=== PATIENT | female | born 1985 | race Caucasian/White ===

== ENCOUNTER 2022-08-22 15:28 | Outpatient (REF) | payer MEDICAID, SELFPAY ==
[2022-08-22 21:08] LABS: Bilirubin Negative (Negative); Blood Trace-intact (Negative); Clarity Clear (Clear); Glucose Negative (Negative); Ketones Negative (Negative); Leukocyte Esterase Trace (Negative); Nitrite Negative (Negative); Urobilinogen 0.2 EU/dL (Up TO 0.2); pH 6.5 (5-8)
[2022-08-22 21:17] LABS: Bacteria Rare HPF (Negative); C & S Indicated? Yes; Crystals Negative HPF (Negative); Epithelial Cells Moderate HPF (Negative); Mucus Negative (Negative); RBC 0-2 HPF (0-2)
[2022-08-22 21:39] LABS: Abs Immature Grans 0.04 10^3/uL (0.0-0.06); Absolute Basophil Count 0.04 10^3/uL (0.0-0.2); Absolute Eosinophil Count 0.03 10^3/uL (0.0-0.7); Absolute Lymphocyte Count 2.12 10^3/uL (1.2-3.4); Absolute Monocyte Count 0.57 10^3/uL (0.1-0.8); Basophils % 0.4; Eosinophils % 0.3; HCT 46.5 % (36.0-46.0); HGB 15.7 g/dL (11.2-15.7); Immature Grans % 0.4; Lymphocytes % 20.6; MCH 30.8 pg (27.0-33.0); MCHC 33.8 % (32.0-36.0); MCV 91 fL (80-95); Monocytes % 5.5; Neutrophils % 72.8; Platelet Count 333 10^3/uL (130-400); RDW 13.1 % (11.7-14.6); RDW-SD 43.9 fL
[2022-08-22 22:01] LABS: ALT 48 U/L (14-59); AST 21 U/L (15-37); Albumin 4.7 g/dL (3.4-5.0); Alkaline Phosphatase 79 U/L (46-116); Anion Gap 10.3 mmol/L (3-11); BUN 13 mg/dL (7-18); Bilirubin, Total 0.5 mg/dL (0.2-1.0); CO2 25.7 mmol/L (21.0-32.0); CREATININE 0.8 mg/dL (0.55-1.02); Calcium 9.6 mg/dL (8.5-10.1); Chloride 102 mmol/L (98-107); Estimated GFR 97.26 (mL/min/1.73m2); Glucose 86 mg/dL (74-106); Sodium 138 mmol/L (136-145)
== END 2022-08-22 15:29 | disposition home or self-care (01) ==
LOC: LBN 15:28
PROVIDERS: Visit Provider Physician Assistant
DX: R10.31 Right lower quadrant pain (principal); R39.89 Other symptoms and signs involving the genitourinary system; R82.998 Other abnormal findings in urine
CPT/HCPCS: 80053; 81003; 81015; 85025; 87086

== ENCOUNTER → 2022-08-23 02:22 | Outpatient (CLI) | payer MEDICAID, SELFPAY ==
--- NOTE | 2022-08-23 06:30 | DI.US_ITS ---
Exam(s) US ABDOMEN EXAM: US ABDOMEN CLINICAL HISTORY: right flank pain with mild radiation to RUQ,unspec abd pain, r10.9 TECHNIQUE: Ultrasound abdomen performed using standard protocol. COMPARISON: US PELVIS TRANSVAG from 03/01/2016 FINDINGS: ABDOMINAL AORTA AND IVC: Visualized portions normal caliber. PANCREAS: Normal where visualized. LIVER: Normal. Hepatopedal flow in the Portal Vein. GALLBLADDER:No evidence of cholelithiasis. No evidence of wall thickening. No pericholecystic fluid i dentified. BILIARY SYSTEM: Common bile duct measures < 7 mm. No intrahepatic biliary ductal dilation. ANN'S SIGN: Negative. KIDNEYS: Kidneys are symmetric in size. No evidence of renal calculi. No evidence of hydronephrosis. No renal mass or cyst identified. SPLEEN: Not enlarged. ASCITES: None seen. IMPRESSION: 1. No evidence of nephrolithiasis or hydronephrosis. 2. No evidence of cholelithiasis or sonographic evidence to suggest acute cholecystitis. DATA REPOSITORY:
== END ==
PROVIDERS: Visit Provider Physician Assistant
DX: R10.9 Unspecified abdominal pain (principal)
CPT/HCPCS: 76700

== ENCOUNTER 2022-11-30 10:01 | Outpatient (REF) | payer MEDICAID, SELFPAY | END 2022-11-30 10:02 | disposition home or self-care (01) | LOC: LBN 10:01 | PROVIDERS: PCP Nurse Practitioner Family; Visit Provider Nurse Practitioner Family | DX: N39.0 Urinary tract infection, site not specified (principal) | CPT/HCPCS: 87077; 87086; 87186 ==

== ENCOUNTER 2022-12-12 11:53 | Outpatient (REF) | payer MEDICAID, SELFPAY ==
[2022-12-12 11:35] LABS: Bilirubin Negative (Negative); Blood Small (Negative); Clarity Sl Cloudy (Clear); Glucose Negative (Negative); Ketones Negative (Negative); Leukocyte Esterase Small (Negative); Nitrite Positive (Negative); Urobilinogen 0.2 EU/dL (Up TO 0.2)
[2022-12-12 11:48] LABS: Bacteria Many HPF (Negative); C & S Indicated? Yes; Casts Negative LPF (Negative); Crystals Negative HPF (Negative); Epithelial Cells Few HPF (Negative); Mucus Negative (Negative)
--- OUTSIDE RECORDS SUMMARY | 2022-12-12 11:55 | XMS_ITS | Continuity of Care Document ---
:1985 Author Organization [facility] Address [address] [place] [address] Encounter NCTY_OR Date(s): 10/01/22 - 10/01/22 [facility] [address] [place] [address] Encounter Diagnosis UTI (urinary tract infection) (Discharge Diagnosis) - 10/01/22 Discharge Disposition: Home or Self Care Attending Physician: Ang Rosario MD Admitting Physician: Ang Rosario MD Allergies, Adverse Reactions, Alerts Substance Reaction Severity Status Sulfacetamide Sodium-Sulfur Moderate Acti ve Assessment and Plan Diagnostic Tests PendingUrine Culture 10/01/22 Medications cephalexin 500 mg oral tablet 500 mg = 1 tab, Oral, TID, X 5 days, # 15 tab, 0 Refill(s), 10/06/22 17:17:00 EST, Pharmacy: [facility], 160.02, cm, 10/01/22 16:48:00 EST, Height/Length Dosing, 68.04, kg, 10/01/22 16:48:00 EST, Weight Dosing Start Date: 10/01/22 Stop Date: 10/06/22 Status: Orderedphenazopyridine 97.2 mg oral tablet 97.2 mg = 1 tab, Oral, TID, PRN not specified, with food, # 10 cap, 0 Refill(s), Pharmacy: [facility], 160.02, cm, 10/01/22 16:48:00 EST, Height/Length Dosing, 68.04, kg, 10/01/22 16:48:00 EST, Weight Dosing Start Date: 10/01/22 Stop Date: 10/03/22 Status: Ordered Results Laboratory List Name Date Urinalysis with Micro if Indicated and Culture if Ivy cated 10/01/22 Urinalysis Microscopic 10/01/22 Most recent to oldest [Reference Range]: 1 UA Color Pale Yellow (10/01/22 5:02 PM) UA WBC [0-3] 25-50 *ABN* (10/01/22 5:02 PM) UA Urobilinogen Normal (10/01/22 5:02 PM) UA Bili [Negative] Negative (10/01/22 5:02 PM) UA Ketones 2+ *ABN* (10/01/22 5:02 PM) UA RBC [0-2] 3-5 (10/01/22 5:02 PM) UA Leuk Est 3+ *ABN* (10/01/22 5:02 PM) UA Nitrite Negative (10/01/22 5:02 PM) UA Glucose [Negative] Negative (10/01/22 5:02 PM) UA Bacteria Moderate /HPF *ABN* (10/01/22 5:02 PM) UA Protein Negative (10/01/22 5:02 PM) UA Blood 2+ *ABN* (10/01/22 5:02 PM) UA Mucous None Seen /HPF (10/01/22 5:02 PM) UA Spec Grav <=1.005 *NA* (10/01/22 5:02 PM) UA Squam Epithelial [None Seen] Rare (10/01/22 5:02 PM) UA pH 6.0 *NA* (10/01/22 5:02 PM) UA Appear Hazy *ABN* (10/01/22 5:02 PM) UA Culture Ind?. Indicated (10/01/22 5:02 PM) Vital Signs Most recent to oldest [Reference Range]: 1 Temperature Temporal Artery [36-38 Deg C] 37.5 Deg C (10/01/22 4:43 PM) Peripheral Pulse Rate [60-100 bpm] 124 bpm *HI* (10/01/22 4:43 PM) Respiratory Rate [12-24 br/min] 16 br/min (10/01/22 4:43 PM) Blood Pressure [90-140/60-90 mmHg] 129/70 mmHg (10/01/22 4:43 PM) Weight Dosing 68.04 kg (10/01/22 4:48 PM) Weight Estimated 68.04 kg (10/01/22 4:43 PM) Height/Length Dosing 160.020 cm (10/01/22 4:48 PM) Height/Length Estimated 160.020 cm (10/01/22 4:43 PM) Social History Social History Type Response Tobacco Current everyday tobacco use r Tobacco Use:. Less than a 1/2 ppd per day. Sex Hospital Discharge Instructions Patient Nffoikvkt90/19/2022 16:19:37Urinary Tract Infection, AdultUrinary Tract Infection, Adult A urinary tract infection (UTI) is an infection of any part of the urinary tract. The urinary tract includes the kidneys, ureters, bladder, and urethra. These organs make, store, and get rid of urine in the body. An upper UTI affects the ureters and kidneys. A lower UTI affects the bladder and urethra. What are the causes? Most urinary tract infections are caused by bacteria in your genital area around your urethra, whereurine leaves your body. These bacteria grow and cause inflammation of your urinary tract. What increases the risk? You are more likely to develop this condition if: ??? You have a urinary catheter that stays in place. ??? You are not able to control when you urinate or have a bowel movement (incontinence). ??? You are female and you: ??? Use a spermicide or diaphragm for control. ??? Have low estrogen levels. ??? Are . ??? You have certain genes that increase your risk. ??? You are sexually active. ??? You take antibiotic medicines. ??? You have a condition that causes your flow of urine to slow down, such as: ??? An enlarged prostate, if you are male. ??? Blockage in your urethra. ??? A kidney stone. ??? A nerve condition that affects your bladder control (neurogenic bladder). ??? Not getting enough to drink, or not urinating often. ??? You have certain medical conditions, such as: ??? Diabetes. ??? A weak disease-fighting system (immunesystem). ??? Sickle cell disease. ??? Gout. ??? Spinal cord injury. What are the signs or symptoms? Symptoms of this condition include: ??? Needing to urinate right away (urgency). ??? Frequent urination. This may include small amounts of urine each time you urinate. ??? Pain or burning with urination. ??? Blood in the urine. ??? Urine that smells bad or unusual. ??? Trouble urinating. ??? Cloudy urine. ??? Vaginal discharge, if you are female. ??? Pain in the abdomen or the lower back. You may also have: ??? Vomiting or a decreased appetite. ??? Confusion. ??? Irritability or tiredness. ??? A fever or chills. ??? Diarrhea. The first symptom in older adults may be confusion. In some cases, they may not have any symptoms until the infection has worsened. How is this diagnosed? This condition is diagnosed based on your medical history and a physical exam. You may also have other tests, including: ??? Urine tests. ??? Blood tests. ??? Tests for STIs (sexually transmitted infections). If you have had more than one UTI, a cystoscopy or imaging studies may be done to determine the cause of the infections. How is this treated? Treatment for this condition includes: ??? Antibiotic medicine. ??? Korn-jdk-nyinsdn medicines to treat discomfort. ??? Drinking enough water to stay hydrated. If you have frequent infections or have other conditions such as a kidney stone, you may need to seea health care provider who specializes in the urinary tract (urologist). In rare cases, urinary tract infections can cause sepsis. Sepsis is a life- threatening condition that occurs when the body responds to an infection. Sepsis is treated in the hospital with IV antibiotics, fluids, and other medicines. Follow these instructions at home: Medicines ??? Take gfvx-mzu-sygylxg and prescription medicines only as told by your health care provider. ??? If you were prescribed an antibiotic medicine, take it as told by your health care provider. Do not stop using the antibiotic even if you start to feel better. General instructions ??? Make sure you: ??? Empty your bladder often and completely. Do not hold urine for long periods of time. ??? Empty your bladder after sex. ??? Wipe from front to back after urinating or having a bowel movement if you are female. Use each tissue only one time when you wipe. ??? Drink enough fluid to keep your urine pale yellow. ??? Keep all follow-up visits. This is important. Contact a health care provider if: ??? Your symptoms do not get better after 1???2 days. ??? Your symptoms go away and then return. Get help right away if: ??? You have severe pain in your back or your lower abdomen. ??? You have a fever or chills. ??? You have nausea or vomiting. Summary ??? A urinary tract infection (UTI) is an infection of any part of the urinary tract, which includesthe kidneys, ureters, bladder, and urethra. ??? Most urinary tract infections are caused by bacteria in your genital area. ??? Treatment for this condition often includes antibiotic medicines. ??? If you were prescribed an antibiotic medicine, take it as told by your health care provider. Do not stop using the antibiotic even if you start to feel better. ??? Keep all follow-up visits. This is important. This information is not intended to replace advice given to you by your health care provider. Make sure you discuss any questions you have with your health care provider. Document Revised: 06/11/2021 Document Reviewed: 06/11/2021 [employer] Patient Education ?? 2021 [employer] Follow Up Care10/01/2022 16:43:02With:Follow up with primary care provider Address: [facility] Ang Rosario MD: PERFORM Event Display: ED Note Physician Authored Date: [id number] VIRAL LUNA :1985 Age:37 years Sex:Female Visit Date:10/01/2022 Basic Information Time Seen: Ang Rosario MD / 10/01/2022 16:45 Chief Complaint Pt states she may have a UTI. ??C/O burning upon urination for a few days History Of Present Illness: 37-year-old female presents because of a 2-day history of burning on urination and urine urgency??and frequency. ??No abdominal pain no CVA tenderness or fever or chills. ??She states that last time she had a UTI and had an ultrasound and a blood test and her kidneys were fine.?? No other complaints.?? She is allergic to sulfa, she does not remember the name of the antibiotic she was on last time.??No suspicion of exposure to sexually transmitted infection. Review of Systems: Constitutional:??no??fever,??no??chills,? Gastrointestinal:??No abdominal pain Genitourinary:??moderate??dysuria,??no??hematuria,??positive urgency Musculoskeletal:??No CVA tenderness Physical Exam Vitals & Measurements T:??37.5?C ??(Temporal Artery)?? HR:??124??(Peripheral)?? RR:??16?? BP:??129/70?? SpO2:??99%?? HT:??160.020??cm?? WT:??68.04??kg??(Estimated)?? Pain Score:??7?? O2 Therapy:??Room air?? General:??alert,??no acute distress. Skin:??warm,??dry. Head:??no??trauma,??normocephalic. ?? Eye:??normal??conjunctiva, sclera??clear. Cardiovascular:?? normal??peripheral perfusion. Respiratory: respirations??non-labored. ?? Gastrointestinal:??soft,??non distended,??no??tenderness,??no??guarding.?? No CVA tenderness ?? Neurological:??oriented??x 4,?speech??normal. Psychiatric:??cooperative, affect??appropriate for age,?? Medical Decision Making: ??Urine analysis??compatible with??UTI.?? No??suspicion of kidney stone clinically . ??Clinically does not appear to be vaginitis.?? She is given Pyridium and also put on cephalexin. ??Discharged in stable condition Procedure No Qualifying Data Assessment/Plan 1.??UTI (urinary tract infection)??N39.0 Orders: cephalexin 500 mg oral tablet, 500 mg = 1 tab, Oral, TID, X 5 days, # 15 tab, 0 Refill(s), 10/06/2217:17:00 EST, Pharmacy: [facility], 160.02, cm, 10/01/22 16:48:00 EST, Height/Length Dosing, 68.04, kg, 10/01/22 16:48:00 EST, Weight Dosing phenazopyridine 97.2 mg oral tablet, 97.2 mg = 1 tab, Oral, TID, PRN not specified, with food, # 10cap, 0 Refill(s), Pharmacy: [facility], 160.02, cm, 10/01/22 16:48:00 EST, Height/Length Dosing, 68.04, kg, 10/01/22 16:48:00 EST, Weight Dosing Discharge Patient, 10/01/22 17:17:00 EST, Home Independently, Constant Indicator Urine Culture, Urine, Stat collect, ST - Stat, 10/01/22 17:02:02 EST, Once, Nurse collect, Collected, 10/01/22 17:02:02 EST, Print Label, [id number] Patient Education Urinary Tract Infection, Adult Follow Up With When Contact Information Follow up with primary care provider Only if needed Additional Instructions: Medication Reconciliation New Prescription cephalexin (cephalexin 500 mg oral tablet)1 tab Oral (given by mouth) 3 times a day for 5 Days. Refills: 0. ?? phenazopyridine (phenazopyridine 97.2 mg oral tablet)1 tab Oral (given by mouth) 3 times a day as needed not specified for 2 Days. with food. Refills: 0. Problem List/Past Medical History Ongoing No qualifying data Historical No qualifying data Medication Administration Given THP cephalexin 250 mg Cap, 1 EA, Oral THP phenazopyridine 95 mg Tab, 1 EA, Oral Allergies Sulfacetamide Sodium-Sulfur Social History Electronic Cigarette/Vaping Electronic Cigarette Use: Never. Tobacco Current everyday tobacco user Tobacco Use:. Less than a 1/2 ppd per day. Lab Results UA Macroscopic?? LATEST RESULTS?? UA Color?? 10/01/22 17:02?? Pale Yellow?? UA Appear?? 10/01/22 17:02?? Hazy Abnormal?? UA Glucose?? 10/01/22 17:02?? Negative?? UA Bili?? 10/01/22 17:02?? Negative?? UA Ketones?? 10/01/22 17:02?? 2+ Abnormal?? UA Spec Grav?? 10/01/22 17:02?? <=1.005?? UA Blood?? 10/01/22 17:02?? 2+ Abnormal?? UA pH?? 10/01/22 17:02?? 6.0?? UA Protein?? 10/01/22 17:02?? Negative?? UA Urobilinogen?? 10/01/22 17:02?? Normal?? UA Nitrite?? 10/01/22 17:02?? Negative?? UA Leuk Est?? 10/01/22 17:02?? 3+ Abnormal?? UA Culture Ind?.?? 10/01/22 17:02?? Indicated? UA Microscopic?? LATEST RESULTS?? UA WBC?? 10/01/22 17:02?? 25-50 Abnormal?? UA RBC?? 10/01/22 17:02?? 3-5?? UA Squam Epithelial?? 10/01/22 17:02?? Rare?? UA Mucous?? 10/01/22 17:02?? None Seen?? UA Bacteria?? 10/01/22 17:02?? Moderate Abnormal? Electronically Signed on 10/01/22 05:52 PM Ang Rosario MD Emergency department Discharge instructions Ang Rosario MD: PERFORM Event Display: ED Discharge Information Authored Date: [id number] VIRAL LUNA :1985 Age:37 years Sex:Female Visit Date:10/01/2022 Discharge Instructions We would like to thank you for allowing us to assist you with your healthcare needs. The following includes patient education materials and information regarding your injury/illness. Diagnosis from Today's Visit UTI (urinary tract infection) Discharge Vitals Temperature??(Temporal Artery) 99.5 ??F (37.5 ??C) Heart Rate??(Peripheral) 124 Respiratory Rate?? 16 Blood Pressure?? 129/70?? Height?? 63.00 in (160.020 cm) Weight??(Estimated) 150.03 lb (68.04 kg) Allergies Sulfacetamide Sodium-Sulfur What to Do Next Instructions from Your Care Team Prescription for cephalexin to take 3 times a day 500 mg and Pyridium to take as needed for burningon urination sent to pharmacy. ??During plenty of fluids.?? Follow-up as needed in the next week if no provement. You Need to Schedule the Following Appointments Follow Up with??Follow up with primary care provider When:??Only if needed You were treated today on an emergency basis; it may be toney to contact your primary care provider to notify them of your visit today. You may have been referred to your regular doctor or a specialist,please follow up as instructed. If your condition worsens or you can't get in to see the doctor, contact the Emergency Department. Medications What How Much When Instructions Next Dose New cephalexin (cephalexin 500 mg oral tablet) 1 tab Oral (given by mouth) 3 times a day Duration: 5 Days Pickup at [facility] New phenazopyridine (phenazopyridine 97.2 mg oral tablet) 1 tab Oral (given by mouth) 3 times a day as needed for not specified Duration: 2 Days with food ?? Pickup at [facility] Pharmacy Information [facility]: [address], [place] [phone] Education Materials Urinary Tract Infection, Adult A urinary tract infection (UTI) is an infection of any part of the urinary tract. The urinary tractincludes the kidneys, ureters, bladder, and urethra. These organs make, store, and get rid of urine in the body. An upper UTI affects the ureters and kidneys. A lower UTI affects the bladder and urethra. What are the causes? Most urinary tract infections are caused by bacteria in your genital area around your urethra, where urine leaves your body. These bacteria grow and cause inflammation of your urinary tract. What increases the risk? You are more likely to develop this condition if: ? You have a urinary catheter that stays in place. ? You are not able to control when you urinate or have a bowel movement (incontinence). ? You are female and you: ? Use a spermicide or diaphragm for control. ? Have low estrogen levels. ? Are . ? You have certain genes that increase your risk. ? You are sexually active. ? You take antibiotic medicines. ? You have a condition that causes your flow of urine to slow down, such as: ? An enlarged prostate, if you are male. ? Blockage in your urethra. ? A kidney stone. ? A nerve condition that affects your bladder control (neurogenic bladder). ? Not getting enough to drink, or not urinating often. ? You have certain medical conditions, such as: ? Diabetes. ? A weak disease-fighting system (immunesystem). ? Sickle cell disease. ? Gout. ? Spinal cord injury. What are the signs or symptoms? Symptoms of this condition include: ? Needing to urinate right away (urgency). ? Frequent urination. This may include small amounts of urine each time you urinate. ? Pain or burning with urination. ? Blood in the urine. ? Urine that smells bad or unusual. ? Trouble urinating. ? Cloudy urine. ? Vaginal discharge, if you are female. ? Pain in the abdomen or the lower back. You may also have: ? Vomiting or a decreased appetite. ? Confusion. ? Irritability or tiredness. ? A fever or chills. ? Diarrhea. The first symptom in older adults may be confusion. In some cases, they may not have any symptoms until the infection has worsened. How is this diagnosed? This condition is diagnosed based on your medical history and a physical exam. You may also have other tests, including: ? Urine tests. ? Blood tests. ? Tests for STIs (sexually transmitted infections). If you have had more than one UTI, a cystoscopy or imaging studies may be done to determine the cause of the infections. How is this treated? Treatment for this condition includes: ? Antibiotic medicine. ? Hriz-htp-zrfsnon medicines to treat discomfort. ? Drinking enough water to stay hydrated. If you have frequent infections or have other conditions such as a kidney stone, you may need to see a health care provider who specializes in the urinary tract (urologist). In rare cases, urinary tract infections can cause sepsis. Sepsis is a life- threatening condition that occurs when the body responds to an infection. Sepsis is treated in the hospital with IV antibiotics, fluids, and other medicines. Follow these instructions at home: Medicines ? Take alvi-ykw-lapgcpv and prescription medicines only as told by your health care provider. ? If you were prescribed an antibiotic medicine, take it as told by your health care provider. Do not stop using the antibiotic even if you start to feel better. General instructions ? Make sure you: ? Empty your bladder often and completely. Do not hold urine for long periods of time. ? Empty your bladder after sex. ? Wipe from front to back after urinating or having a bowel movement if you are female. Use each tissue only one time when you wipe. ? Drink enough fluid to keep your urine pale yellow. ? Keep all follow-up visits. This is important. Contact a health care provider if: ? Your symptoms do not get better after 1???2 days. ? Your symptoms go away and then return. Get help right away if: ? You have severe pain in your back or your lower abdomen. ? You have a fever or chills. ? You have nausea or vomiting. Summary ? A urinary tract infection (UTI) is an infection of any part of the urinary tract, which includes thekidneys, ureters, bladder, and urethra. ? Most urinary tract infections are caused by bacteria in your genital area. ? Treatment for this condition often includes antibiotic medicines. ? If you were prescribed an antibiotic medicine, take it as told by your health care provider. Do not stop using the antibiotic even if you start to feel better. ? Keep all follow-up visits. This is important. This information is not intended to replace advice given to you by your health care provider. Make sure you discuss any questions you have with your health care provider. Document Revised: 06/11/2021 Document Reviewed: 06/11/2021 [employer] Patient Education ?? 2021 [employer] Tests Performed Lab Test Name Test Result Date/Time UA Color Pale Yello 10/01/2022 17:02 EST UA Appear Hazy- Clinitek 10/01/2022 17:02 EST UA Glucose NEGATIVE 10/01/2022 17:02 EST UA Bili NEGATIVE 10/01/2022 17:02 EST UA Ketones 2+ 10/01/2022 17:02 EST UA Spec Grav <=1.005 10/01/2022 17:02 EST UA Blood 2+ 10/01/2022 17:02 EST UA pH 6.0 10/01/2022 17:02 EST UA Protein NEGATIVE 10/01/2022 17:02 EST UA Urobilinogen 0.2 Uro 10/01/2022 17:02 EST UA Nitrite NEGATIVE 10/01/2022 17:02 EST UA Leuk Est 3+ 10/01/2022 17:02 EST UA Culture Ind?. Indicated 10/01/2022 17:02 EST UA WBC 25-50 10/01/2022 17:02 EST UA RBC 3-5 10/01/2022 17:02 EST UA Squam Epithelial Rare 10/01/2022 17:02 EST UA Mucous None Seen 10/01/2022 17:02 EST UA Bacteria Moderate 10/01/2022 17:02 EST Patient/Attendant Honor Bar Signature Patient Name:VIRAL LUNA I have received this information and my questions have been answered. Patient/Attendant Honor Bar Name: Patient/Attendant Honor Bar Signature: Relationship to Patient: Witness Name/Signature: Date: Electronically Signed on: 10/01/2022 17:19 ESTSigned by:ERICH Emergency department Note Sarah Zelaya: PERFORM Event Display: ED Notes Authored Date: [id number]
== END 2022-12-12 11:54 | disposition home or self-care (01) ==
LOC: LBN 11:53
PROVIDERS: PCP Nurse Practitioner Family; Visit Provider Nurse Practitioner Family
DX: R82.998 Other abnormal findings in urine (principal); N39.0 Urinary tract infection, site not specified
CPT/HCPCS: 87077; 81003; 81015; 87086; 87186

== ENCOUNTER 2024-04-24 22:30 | Outpatient (REF) | payer SELFPAY ==
[2024-04-24 22:37] LABS: Bilirubin Negative (Negative); Blood Small (Negative); Clarity Sl Cloudy (Clear); Glucose Negative (Negative); Ketones Negative (Negative); Leukocyte Esterase Small (Negative); Nitrite Negative (Negative); Urobilinogen 0.2 mg/dL (Up to 0.2)
[2024-04-24 22:45] LABS: Bacteria Moderate HPF (Negative); C & S Indicated? No/Sq. Contamination; Crystals Negative HPF (Negative); Epithelial Cells Moderate HPF (Negative); Mucus Negative (Negative)
== END 2024-04-24 22:31 | disposition home or self-care (01) ==
LOC: LBN 22:30
PROVIDERS: PCP Nurse Practitioner Family; Visit Provider Nurse Practitioner Family
DX: R31.9 Hematuria, unspecified (principal); N39.0 Urinary tract infection, site not specified
CPT/HCPCS: 81003; 81015

== ENCOUNTER 2024-05-01 15:44 | Outpatient (REF) | payer SELFPAY ==
[2024-05-01 13:09] LABS: Bilirubin Negative (Negative); Blood Trace-lysed (Negative); Clarity Sl Cloudy (Clear); Glucose Negative (Negative); Ketones Negative (Negative); Leukocyte Esterase Trace (Negative); Nitrite Negative (Negative); Specific Gravity 1.015 (1.005-1.025); Urobilinogen 0.2 mg/dL (Up to 0.2); pH 6.5 (5-8)
[2024-05-01 13:29] LABS: Bacteria Negative HPF (Negative); C & S Indicated? No; Casts Negative LPF (Negative); Crystals Negative HPF (Negative); Epithelial Cells Few HPF (Negative); Mucus Negative (Negative); RBC 0-2 HPF (0-2)
== END 2024-05-01 15:45 | disposition home or self-care (01) ==
LOC: LBN 15:44
PROVIDERS: PCP Nurse Practitioner Family; Visit Provider Nurse Practitioner Family
DX: N30.90 Cystitis, unspecified without hematuria (principal)
CPT/HCPCS: 81003; 81015

== ENCOUNTER 2024-05-06 18:45 | Outpatient (REF) | payer SELFPAY ==
[2024-05-06 13:59] LABS: Bilirubin Negative (Negative); Blood Trace-intact (Negative); Clarity Clear (Clear); Glucose Negative (Negative); Ketones Negative (Negative); Leukocyte Esterase Trace (Negative); Nitrite Negative (Negative); Specific Gravity 1.015 (1.005-1.025); Urobilinogen 0.2 mg/dL (Up to 0.2); pH 6.5 (5-8)
[2024-05-06 14:10] LABS: Bacteria Few HPF (Negative); C & S Indicated? No; Casts Negative LPF (Negative); Crystals Negative HPF (Negative); Epithelial Cells Rare HPF (Negative); Mucus Negative (Negative); RBC 0-2 HPF (0-2)
== END 2024-05-06 18:46 | disposition home or self-care (01) ==
LOC: LBN 18:45
PROVIDERS: PCP Nurse Practitioner Family; Visit Provider Nurse Practitioner Family
DX: N39.0 Urinary tract infection, site not specified (principal)
CPT/HCPCS: 81003; 81015

== ENCOUNTER 2024-09-26 12:33 | Outpatient (REF) | payer SELFPAY ==
[2024-09-26 21:59] LABS: Bilirubin Negative (Negative); Blood Trace-lysed (Negative); Clarity Clear (Clear); Glucose Negative (Negative); Ketones Negative (Negative); Leukocyte Esterase Small (Negative); Nitrite Negative (Negative); Specific Gravity 1.015 (1.005-1.025); Urobilinogen 0.2 mg/dL (Up to 0.2)
[2024-09-26 22:11] LABS: Bacteria Rare HPF (Negative); Crystals Negative HPF (Negative); Epithelial Cells Moderate HPF (Negative); Mucus Negative (Negative); RBC 0-2 HPF (0-2)
[2024-09-26 22:12] LABS: C & S Indicated? No
== END 2024-09-26 12:34 | disposition home or self-care (01) ==
LOC: LBN 12:33
PROVIDERS: PCP Nurse Practitioner Family; Visit Provider Nurse Practitioner Family
DX: R39.89 Other symptoms and signs involving the genitourinary system (principal); R82.998 Other abnormal findings in urine
CPT/HCPCS: 81003; 81015

== ENCOUNTER 2024-10-09 19:12 | Outpatient (REF) | payer SELFPAY ==
[2024-10-09 19:25] LABS: Bilirubin Negative (Negative); Blood Trace-intact (Negative); Clarity Clear (Clear); Glucose Negative (Negative); Ketones Negative (Negative); Leukocyte Esterase Trace (Negative); Nitrite Negative (Negative); Urobilinogen 0.2 mg/dL (Up to 0.2); pH 5.5 (5-8)
[2024-10-09 19:35] LABS: Bacteria Rare HPF (Negative); C & S Indicated? C&S Done As Ordered; Casts Negative LPF (Negative); Crystals Negative HPF (Negative); Epithelial Cells Moderate HPF (Negative); Mucus Trace (Negative); RBC 0-2 HPF (0-2)
== END 2024-10-09 19:13 | disposition home or self-care (01) ==
LOC: LBN 19:12
PROVIDERS: PCP Nurse Practitioner Family; Visit Provider Nurse Practitioner Family
DX: N89.8 Other specified noninflammatory disorders of vagina (principal); R30.0 Dysuria; N39.0 Urinary tract infection, site not specified
CPT/HCPCS: 87077; 81003; 81015; 87086; 87186; 87480; 87510; 87660

== ENCOUNTER 2024-10-18 20:56 | Outpatient (REF) | payer SELFPAY ==
[2024-10-18 21:31] LABS: Bilirubin Negative (Negative); Blood Small (Negative); Clarity Clear (Clear); Glucose Negative (Negative); Ketones Trace mg/dL (Negative); Leukocyte Esterase Negative (Negative); Nitrite Negative (Negative); Urobilinogen 0.2 mg/dL (Up to 0.2)
[2024-10-18 21:44] LABS: Bacteria Few HPF (Negative); Crystals Negative HPF (Negative); Epithelial Cells Few HPF (Negative)
[2024-10-18 21:45] LABS: C & S Indicated? No; Casts Negative LPF (Negative); Mucus Trace (Negative)
== END 2024-10-18 20:57 | disposition home or self-care (01) ==
LOC: LBN 20:56
PROVIDERS: PCP Nurse Practitioner Family; Visit Provider Nurse Practitioner Family
DX: N39.0 Urinary tract infection, site not specified (principal)
CPT/HCPCS: 81003; 81015

== ENCOUNTER 2025-06-10 20:04 | Outpatient (REF) | payer SELFPAY ==
[2025-06-10 11:02] LABS: Creatinine,Urine 121.88 mg/dL; Sodium, Urine 74 mmol/L
[2025-06-10 11:13] LABS: Creatinine,24hr Ur 1.22 g/24hr (0.60-1.80); Total Volume 1000 ml
[2025-06-11 10:02] LABS: Timed Urine Volume 1000 mL
[2025-06-11 10:16] LABS: Phosphorus Urine 24hr 0.7 g/24hrs (0.4-1.3); Timed Urine Volume 1000 mL
[2025-06-11 10:20] LABS: Calcium Urine 23.0 mg/dL (See Note); Timed Urine Volume 1000 mL
[2025-06-12 14:23] LABS: Citrate Excretion, 24hr, U 674 mg/24 h (292 - 1191)
[2025-06-13 14:12] LABS: Oxalate, U 0.17 mmol/24 h; Oxalate, U 15.0 mg/24 h (9.7 - 40.5)
[2025-06-24 11:11] LABS: Timed Urine Volume 1000
== END 2025-06-10 20:05 | disposition home or self-care (01) ==
LOC: LBN 20:04
PROVIDERS: PCP Nurse Practitioner Family; Visit Provider Urology
DX: N20.0 Calculus of kidney (principal)
CPT/HCPCS: 82507; 83735; 81050; 82340; 82570; 83945; 84105; 84300; 84560